=== PATIENT | male | born 1955 | race African-American/Black ===

== ENCOUNTER → 2017-05-29 | Outpatient (CLI) | payer OTHER ==
[~2017-05-29] MED LIST: ASPIR 8181 MG PO; COREG3.125 MG PO; DUONEB 2.5-0.5 M3 ML INH; EFFIENT10 MG PO; HUMALOG100 UNIT/2 SUBQ; LASIX 40 MG TAB40 MG PO; LEVEMIR SUBQ; LIPITOR 20 MG T20 M1 PO; METFORMIN HCL500 MG PO; NITROGLYCERIN0.4 MG SUBLING; OMEPRAZOLE40 MG PO; ONGLYZA5 MG PO; POTASSIUM20 PO; SPIRONOLACTONE25 M1 PO; TRADJENTA5 MG PO
[2017-05-29 11:41] LABS: CALCIUM 9.6 mg/dL (8.5-10.1); CREATININE 1.4 mg/dL (0.6-1.3); POTASSIUM 3.9 mmol/L (3.5-5.1)
== END ==
LOC: M.LAB 10:53
PROVIDERS: Nurse Practitioner
DX: I50.32 Chronic diastolic (congestive) heart failure (principal)

== ENCOUNTER 2017-09-08 22:47 | Observation (INO) | payer OTHER ==
[~2017-09-08] VITALS: Ht 175.3 cm; Wt 99.8 kg
[~2017-09-08 22:47] MED LIST changes: -LEVEMIR SUBQ; -OMEPRAZOLE40 MG PO; -SPIRONOLACTONE25 M1 PO; -TRADJENTA5 MG PO
[2017-09-08 22:53] VITALS: BP 153/66
[2017-09-08] MEDS ORDERED: TRADJENTA5 MG PO (23:04)
[2017-09-08] MEDS ORDERED: SPIRONOLACTONE25 M1 PO (23:04)
[2017-09-08] MEDS ORDERED: LEVEMIR SUBQ (23:05)
[2017-09-08 23:32] LABS: HEMATOCRIT 38.3 % (42.0-52.0); HEMOGLOBIN 12.3 gm/dL (14.0-18.0); MCH 26.8 pg (26.0-34.0); MCHC 32.2 g/dL (28.0-37.0); MCV 83.3 fL (80.0-100.0); MPV 10.2 fl. (7.2-11.1); NUCLEATED RBCS 0 /100WBC; PLATELET COUNT* 185 thou/uL (150-400); RDW-CV 17.4 % (10.5-14.5); WBC 15.3 thou/uL (4.0-11.0)
[2017-09-08 23:37] LABS: ANION GAP 7 mmol/L (7-16); BUN 22 mg/dL (7-18); CHLORIDE 101 mmol/L (98-107); CO2 33 mmol/L (21-32); CREATININE 1.6 mg/dL (0.6-1.3); GLUCOSE 160 mg/dL (70-99); POTASSIUM 3.8 mmol/L (3.5-5.1); SODIUM 141 mmol/L (136-145)
[2017-09-08 23:43] LABS: ALBUMIN 3.9 g/dL (3.4-5.0); ALKALINE PHOSPHATASE 108 U/L (46-116); LIPASE 104 U/L (73-393); SGOT 228 U/L (15-37); SGPT 203 U/L (30-65); TOTAL BILIRUBIN 1.5 mg/dL (<0.1-1.0); TOTAL PROTEIN 7.7 g/dL (6.4-8.2); TROPONIN-I LEVEL <0.06 ng/mL (<0.06)
[2017-09-09 01:12] LABS: URINE BLOOD NEGATIVE (Negative); URINE CLARITY CLEAR; URINE COLOR YELLOW; URINE GLUCOSE-RANDOM NEGATIVE (Negative); URINE KETONES TRACE (Negative); URINE LEUKOCYTES-REFLEX NEGATIVE (Negative); URINE NITRITE-REFLEX NEGATIVE (Negative); URINE PROTEIN 1+ (Negative); URINE SPECIFIC GRAVITY <= 1.005 (1.005-1.030)
[2017-09-09 01:15] LABS: ABSOLUTE BASOPHILS 0.2 thou/uL (0.0-0.2); ABSOLUTE LYMPHOCYTES 2.1 thou/uL (0.8-5.3); ABSOLUTE MONOCYTES 0.5 thou/uL (0.0-1.2); ABSOLUTE NEUTROPHILS 12.5 thou/uL (1.6-8.1)
[2017-09-09 01:16] LABS: ANISOCYTOSIS 1+; BURR CELLS Occasional; PLATELET ESTIMATE ADEQUATE
[2017-09-09 01:17] LABS: POIKILOCYTOSIS 1+
[2017-09-09 01:18] LABS: URINE BILIRUBIN 1+ (Negative)
[2017-09-09 01:23] LABS: ICTOTEST (BILI CONFIRMATORY) Negative (Negative)
[2017-09-09 03:15] VITALS: BP 143/83
[2017-09-09 03:20] VITALS: BP 140/76
[2017-09-09 08:00] VITALS: BP 112/75
[2017-09-09 08:36] LABS: ABSOLUTE BASOPHILS 0.1 thou/uL (0.0-0.2); ABSOLUTE EOSINOPHILS 0.1 thou/uL (0.0-0.7); ABSOLUTE LYMPHOCYTES 1.2 thou/uL (0.8-5.3); ABSOLUTE MONOCYTES 0.9 thou/uL (0.0-1.2); ABSOLUTE NEUTROPHILS 9.9 thou/uL (1.6-8.1); BASOPHILS 0.7 %; EOSINOPHILS 0.7 %; HEMATOCRIT 33.5 % (42.0-52.0); HEMOGLOBIN 10.9 gm/dL (14.0-18.0); LYMPHOCYTES 10.1 %; MCH 26.7 pg (26.0-34.0); MCHC 32.7 g/dL (28.0-37.0); MCV 81.7 fL (80.0-100.0); MONOCYTES 7.6 %; MPV 9.5 fl. (7.2-11.1); NUCLEATED RBCS 0 /100WBC; PLATELET COUNT* 168 thou/uL (150-400); POLYS 80.9 %; RDW-CV 16.9 % (10.5-14.5); WBC 12.2 thou/uL (4.0-11.0)
[2017-09-09 08:44] LABS: CALCIUM 8.7 mg/dL (8.5-10.1); CREATININE 1.4 mg/dL (0.6-1.3); POTASSIUM 3.5 mmol/L (3.5-5.1)
[2017-09-09 08:48] LABS: ALBUMIN 3.3 g/dL (3.4-5.0); MAGNESIUM 1.5 mg/dL (1.8-2.4); PHOSPHORUS* 3.5 mg/dL (2.5-4.9); TOTAL PROTEIN 6.6 g/dL (6.4-8.2)
--- NOTE | 2017-09-09 13:41 | EKG ---
[place] [address] ELECTROCARDIOGRAM REPORT Name: JACLYN GREEN Room: [address] IN [facility].#: [id number] Admission: 09/09/17 Attend Phys: Gomez Patel Discharge: Date of : 57 Report #: [id number] THIS REPORT FOR: //name// [facility] ED Test Date: 2017-09-08 Test Time: 23:09:50 Pat Name: JACLYN GREEN Department: Room: Gender: Rn Appeals: [place] : 1955 Requested By: Epifanio Trinh Order Number: [id number] MD: Nacho Burns Measurements Intervals [place] Rate: 90 P: 71 HI: 136 QRS: -20 QRSD: 139 T: 143 QT: 408 QTc: 500 Interpretive Statements Sinus rhythm Left bundle branch block Compared to ECG 09/26/2016 08:36:12 No significant changes Electronically Signed On 09-09-2017 13:40:53 CDT by Nacho Burns [email or web address] <ELECTRONICALLY SIGNED> By: Nacho Burns MD, [facility] 09/09/17 1340 2309 2309 Nacho Burns MD, FAC /EPI
[2017-09-09 17:49] VITALS: BP 119/77
[2017-09-09 20:40] VITALS: BP 110/69
[2017-09-10 04:34] LABS: MCH 27.7 pg (26.0-34.0); MCHC 33.4 g/dL (28.0-37.0); MCV 83.1 fL (80.0-100.0); RBC 3.98 mil/uL (4.50-6.00); RDW-CV 17.8 % (10.5-14.5); WBC 10.6 thou/uL (4.0-11.0)
[2017-09-10 05:11] LABS: ALBUMIN 3.2 g/dL (3.4-5.0); CALCIUM 8.6 mg/dL (8.5-10.1); CREATININE 1.5 mg/dL (0.6-1.3); MAGNESIUM 1.8 mg/dL (1.8-2.4); POTASSIUM 3.9 mmol/L (3.5-5.1); TOTAL BILIRUBIN 0.7 mg/dL (<0.1-1.0); TOTAL PROTEIN 6.6 g/dL (6.4-8.2)
[2017-09-10] MEDS ORDERED: OMEPRAZOLE40 MG PO (07:09)
[2017-09-10 08:00] VITALS: BP 130/76
[2017-09-10 09:44] VITALS: BP 110/69
== END 2017-09-10 11:30 | disposition home or self-care (01) ==
LOC: M.ERS 22:47 → M.TBA-ER 09-09 02:16 → M.ORTHSURG 09-09 02:16
PROVIDERS: Family Medicine; Internal Medicine; ADMIT Internal Medicine
DX: A41.9 Sepsis, unspecified organism (principal); K81.0 Acute cholecystitis; E11.22 Type 2 diabetes mellitus with diabetic chronic kidney disease; N18.2 Chronic kidney disease, stage 2 (mild); I50.32 Chronic diastolic (congestive) heart failure; I25.10 Atherosclerotic heart disease of native coronary artery without angina pectoris; Z72.89 Other problems related to lifestyle; Z95.5 Presence of coronary angioplasty implant and graft; Z98.890 Other specified postprocedural states; Z95.4 Presence of other heart-valve replacement; Z79.4 Long term (current) use of insulin

== ENCOUNTER 2019-03-28 09:30 | Observation (INO) | payer MEDICARE ==
[2019-03-28] VITALS (9 sets, daily range): BP systolic 137–144; BP diastolic 72–98
[~2019-03-28] VITALS: Ht 175.3 cm; Wt 98.4 kg
[~2019-03-28 09:30] MED LIST changes: +LEVEMIR SUBQ; +OMEPRAZOLE40 MG PO; +SPIRONOLACTONE25 M1 PO; +TRADJENTA5 MG PO
[2019-03-28 10:48] LABS: ABSOLUTE BASOPHILS 0.1 thou/uL (0.0-0.2); ABSOLUTE EOSINOPHILS 0.2 thou/uL (0.0-0.7); ABSOLUTE MONOCYTES 0.8 thou/uL (0.0-1.2); ABSOLUTE NEUTROPHILS 7.3 thou/uL (1.6-8.1); BASOPHILS 1.4 %; EOSINOPHILS 2.6 %; HEMATOCRIT 38.6 % (42.0-52.0); LYMPHOCYTES 10.8 %; MCH 26.2 pg (26.0-34.0); MCHC 33.7 g/dL (28.0-37.0); MCV 77.7 fL (80.0-100.0); MPV 9.5 fl. (7.2-11.1); NUCLEATED RBCS 0 /100WBC; PLATELET COUNT* 239 thou/uL (150-400); POLYS 77.2 %; RBC 4.97 mil/uL (4.50-6.00); RDW-CV 16.9 % (10.5-14.5); WBC 9.4 thou/uL (4.0-11.0)
[2019-03-28 10:57] LABS: APTT 27.6 Seconds (25.0-31.3); INR 1.1; PROTIME 11.6 Seconds (9.20-11.50)
[2019-03-28 11:02] LABS: CALCIUM 9.4 mg/dL (8.5-10.1); CREATININE 1.3 mg/dL (0.6-1.3); POTASSIUM 3.7 mmol/L (3.5-5.1)
[2019-03-28 11:06] LABS: ALBUMIN 3.8 g/dL (3.4-5.0); TOTAL BILIRUBIN 1.2 mg/dL (<0.1-1.0); TOTAL PROTEIN 7.4 g/dL (6.4-8.2)
--- NOTE | 2019-03-28 18:58 | NUR ---
PT ARRIVED FROM [facility] AROUND 1840. ABLE TO MAKE NEEDS KNOWN. PT RESTING IN BED, TRIED TO URINATE WITH NO SUCCESS. CALL LIGHT WITHIN REACH, GROIN SITE C/D/I AT THIS TIME. BROTHER AT BEDSIDE. IV FLUIDS RUNNING PER EMAR. WILL CONTINUE TO MONITOR.
[2019-03-28 22:08] LABS: HEMOGLOBIN 13.1 gm/dL (14.0-18.0); MCH 25.7 pg (26.0-34.0); MCHC 32.7 g/dL (28.0-37.0); MCV 78.5 fL (80.0-100.0); MPV 9.5 fl. (7.2-11.1); RBC 5.1 mil/uL (4.50-6.00); WBC 9.9 thou/uL (4.0-11.0)
[2019-03-29 03:52] VITALS: BP 136/84
[2019-03-29 05:45] LABS: HEMATOCRIT 35.8 % (42.0-52.0); HEMOGLOBIN 11.9 gm/dL (14.0-18.0); MCHC 33.3 g/dL (28.0-37.0); MCV 78.1 fL (80.0-100.0); MPV 9.7 fl. (7.2-11.1); RBC 4.59 mil/uL (4.50-6.00); RDW-CV 16.8 % (10.5-14.5)
[2019-03-29 05:50] LABS: ALBUMIN 3.3 g/dL (3.4-5.0); ALKALINE PHOSPHATASE 77 U/L (46-116); ANION GAP 12 mmol/L (7-16); BUN 15 mg/dL (7-18); CALCIUM 8.3 mg/dL (8.5-10.1); CHLORIDE 103 mmol/L (98-107); CHOLESTEROL 194 mg/dL (<200); CO2 24 mmol/L (21-32); CREATININE 1.2 mg/dL (0.6-1.3); GLUCOSE 149 mg/dL (70-99); HDL CHOLESTEROL 50 mg/dL (>40); LDL CHOLESTEROL 124 mg/dL (<100); POTASSIUM 4.2 mmol/L (3.5-5.1); SGOT 16 U/L (15-37); SGPT 18 U/L (30-65); SODIUM 139 mmol/L (136-145); TC:HDL 3.9 Ratio (Not establshd); TOTAL BILIRUBIN 1.2 mg/dL (<0.1-1.0); TRIGLYCERIDE 101 mg/dL (<150); TROPONIN-I LEVEL 0.31 ng/mL (<0.06); VLDL 20 mg/dL (<40)
[2019-03-29 05:57] LABS: SERUM ASSESSMENT Clear
--- NOTE | 2019-03-29 06:57 | NUR ---
APPROX 2120 PT CATH SIGHT WAS ACTIVE BLEEDING, CATHODE RAY TUBE SALVAGE PROCESSOR NOTIFIED. PROVIDER NOTIFED. PRESSURE WAS HELD FOR 20 MIN. ORDERS FOR BEDREST TILL 0600, PT DID VOID SEVERAL TIMES. NO SIGNS OF HEMATOMA OR BLEEDING SINCE PRESSURE WAS HELD.
[2019-03-29 08:00] VITALS: BP 123/76
[2019-03-29 09:02] VITALS: BP 136/84
[2019-03-29 11:21] VITALS: BP 136/84
[2019-03-29 11:56] VITALS: BP 107/67
[2019-03-29] MEDS ORDERED: PLAVIX 75 MG TA75 MG PO (13:21)
--- NOTE | 2019-03-29 13:27 | CARD ---
[address] [address] CARDIAC CATH REPORT Name: JACLYN GREEN Olive Room: [address] Tisha Valdez#: [id number] Admission: 03/28/19 Attend Phys: Uriel Caal MD, Discharge: Date of : 57 Report #: [id number] THIS REPORT FOR: //name// cc: Uriel Dooley MD, John M. MD ~ THIS REPORT FOR: //name// APPROVED REPORT Study performed: 03/28/2019 12:32:32 Patient Details Patient Status: ED Room #: The patient is a 63 year-old male Event Personnel Uriel Caal Aoc Aadc Operations Staff Officer, Randee Pak Food ExpeditorShane Adam RTR Scrub, Jordyn Ruelas RTR Monitor Procedures Performed Art Access - R femoral artery* BEVERLY Place w/wo Plasty Single CIRC [id number] Left Heart Cath Coronaries, Bypass Grafts [id number] LHCCORCABG Indication Unstable angina , Positive stress test Risk Factors Obesity, Hypercholesterolemia, Diabetes Previous Procedures/Diagnoses Previous PCI, Previous Valve Surgery Admission/Lab Medications/Medications given during procedure Angiomax bolus and infusion Procedure Narrative The patient was brought urgently to the Cardiac Catheterization Laboratory and was prepped and draped in a sterile manner. The right femoral was infiltrated with 2% Lidocaine subcutaneous anesthesia. A [place] 6 FR sheath was inserted into the right femoral artery. Coronary angiography was performed using coronary diagnostic catheters. The right coronary system was accessed and visualized with a Diagnostic catheter. The left coronary [place] [address] CARDIAC CATH REPORT Name: JACLYN GREEN Room: [address] Tisha Valdez#: [id number] Admission: 03/28/19 Attend Phys: Uriel Caal MD, Discharge: Date of : 57 Report #: [id number] visualized with a Diagnostic catheter. The left ventricle was accessed and visualized with a Diagnostic catheter. Left ventricular/Aortic Valve gradient assessed via catheter pullback. Closure device was deployed with a 6 Fr Angioseal. The patient tolerated the procedure well and there were no complications associated with the procedure. There was no hematoma. Intraoperative Conscious Sedation Sedation start time: 13:26 Case end Time: 14:55 Fentanyl 25 mcg Versed 1 mg Contrast Type and Amount: Visipaque 360 ml [place] Artery Percent Stenosis I widely patent PARKINSON graft to the mid LAD Diagnostic Cath Left Main 20 percent proximal left main in-stent narrowing LAD 90% mid LAD stenosis with reciprocal flow reflecting a patent PARKINSON graft to the LAD Circumflex 80% ostial proximal 80% mid and 60% distal narrowing Right Coronary 100% proximal occlusion with lvvb-vq-huzcq collaterals filling the distal right coronary artery Left Ventriculography Left Ventriculography was not performed. Hemodynamics The aortic pressure is 129/70 mmHg with a mean of 97 mmHg. The left ventricular pressure is 134/5 mmHg with a mean of mmHg. The left ventricular end diastolic pressure is 19 mmHg. There was no gradient across the aortic valve upon pullback. PCI Technique Lesion Anticoagulation was achieved with Heparin. Patient was preloaded with PlavixOxygen Nasal cannula 2 l per min. Percutaneous coronary intervention was performed on the mid circumflex artery segment. The lesion stenosis prior to intervention was 80% with JAVI flow. A 6FR XBLAD 3.0 100CM Guide Catheter was used to engage the ostium. A IG: BMW 190cm Interventional Guidewire was used to cross the lesion. BALLOON DILATION A Balloon catheter Trek RX 2.5 X 12 was inserted and inflated up to 12.00atm for 10seconds. Additional Inflation: 14.00atm [place] [address] CARDIAC CATH REPORT Name: PETERJACLYN Room: [address] Courtney#: [id number] Admission: 03/28/19 Attend Phys: Uriel Caal MD, Discharge: Date of : 57 Report #: [id number] 9seconds. STENT DEPLOYMENT A drug-eluting stent Xience Hui 2.06D41cg was inserted and inflated up to 12.00atm for 6seconds. Additional Inflation: 14.00atm for 8seconds. Additional Inflation: 16.00atm for 9seconds. Final angiography reveals 10 % stenosis with JAVI 3 flow. PCI Technique Lesion 2 Percutaneous Coronary Intervention was performed on the proximal circumflex artery segment. The lesion stenosis prior to intervention was 80% with JAIV 3 flow. A 6FR XB LAD 3.0 100CM Guide Catheter was used to engage the ostium. A IG: BMW 190cm Interventional Guidewire was used to cross the lesion. Balloon Dilation A Balloon catheter Trek RX 2.5 X 12 was inserted and inflated up to 14.00atm for 4seconds. Stent Deployment A drug-eluting stent Xience Hui 2.5X12mm was inserted and inflated up to 12.00atm for 8seconds. Additional Inflation: 15.00atm for 6seconds. Additional Inflation: 15.00atm for 6seconds. Final angiography reveals 0 % stenosis with JAVI 3 flow. Conclusion #1 significant coronary artery disease characterized by the following: A 20% proximal left main in-stent narrowing B 90% mid LAD stenosis with reciprocal flow distally reflecting a patent PARKINSON graft C prominent though nondominant circumflex with 80% proximal 80% mid and 60% distal stenosis D dominant right coronary artery 100% occluded proximally with uvyc-gu-iamtl collaterals filling the distal right coronary artery #2 moderate elevation of left ventricular end-diastolic [place] [address] CARDIAC CATH REPORT Name: IHSAN GREENZACK Schaefer Room: [address] Tisha Valdez#: [id number] Admission: 03/28/19 Attend Phys: Uriel Caal MD, Discharge: Date of : 57 Report #: [id number] #3 single patent graft, PARKINSON graft to the mid LAD with no significant narrowing #4 successful percutaneous coronary intervention with deployment of drug-eluting stents at the sites of 80% proximal and mid circumflex stenosis with 0 and 10% residual narrowings and JAVI-3 flow to the distal vessel Recommendations Cardiac Risk Reduction Program Aggressive Medical Therapy Medications Administered Aspirin (any) Clopidogrel Diagnostic Cath Approved by: Uriel Caal MD Date/Time: 03/29/2019 13:20:00 <ELECTRONICALLY SIGNED> By: Uriel Caal MD, [facility] 03/29/19 1326 25 1326Uriel Caal MD, FACC /INF
--- NOTE | 2019-03-29 14:00 | NUR ---
ASSUMED PT CARE AT 0700, PT A&O X4, VSS, RA, UP AD MISAEL, WELT TREATER TRACING SINUS RHYTHM WITH BBB, FULL ASSESSMENT CHARTED. CATH SITE TO RIGHT GROIN, NON TENDER, DRESSING CLEAN, DRY, AND INTACT. PT DISCHARGED AT APPROX 1345 WITH SON, EDUCATED ON ALL DISCHARGE INSTRUCTIONS INCLUDING MEDICATIONS AND FOLLOW UP APPTS. WELT TREATER AND IV,REMOVED, HOURLY ROUNDING COMPLETED.
--- NOTE | 2019-03-29 16:34 | H ---
[address] [address] HISTORY AND PHYSICAL Name: JACLYN GREEN Room: [address] Tisha Valdez#: [id number] Admission: 03/28/19 Attend Phys: Uriel Caal MD, Discharge: 03/29/19 Date of : 57 Report #: [id number] THIS REPORT FOR: //name// cc: Uriel Dooley MD, John M. MD ~ THIS REPORT FOR: //name// CC: Uriel Caal Karrie Almaraz DATE OF SERVICE: 03/28/2019 HISTORY OF PRESENT ILLNESS: The patient is a very pleasant 63-year-old male with complex cardiac problems. He is status post remote coronary artery bypass grafting, aortic valve replacement. He has had marginally compensated heart failure. Recently, he has noted chest tightness with exertion and that precipitated his admission to the ER today. Episodes typically remit with cessation of activity, but they have become more frequent and more severe. He has underlying hypertension, hypercholesterolemia, diabetes, and weight excess. MEDICATIONS: Have included aspirin, atorvastatin, carvedilol, cetirizine, Jardiance, insulin, Tradjenta, metformin, nitroglycerin, omeprazole, Effient, and ramipril. PAST MEDICAL HISTORY: Remarkable for diabetes, prior aortic valve replacement with a tissue valve and hypercholesterolemia as well as weight excess. REVIEW OF SYSTEMS: Remarkable for the following: GENERAL: He notes mild persistent weight excess. ENDOCRINE: He has had longstanding diabetes, which is insulin requiring. MUSCULOSKELETAL: He notes mild arthritic complaints. Remainder is unremarkable. PHYSICAL EXAMINATION: GENERAL: Demonstrates a middle-aged male in no acute distress. VITAL SIGNS: Blood pressure 130/90, pulse rate is 78, respirations are 18 per minute. NECK: Jugular venous pressure is normal. Carotids are 1-2+. CHEST: Clear. CARDIAC: Reveals normal first and second heart sounds with a soft [place] [address] HISTORY AND PHYSICAL Name: JACLYN GREEN Olive Room: [address] Tisha Valdez#: [id number] Admission: 03/28/19 Attend Phys: Uriel Caal MD, Discharge: 03/29/19 Date of : 57 Report #: [id number] ABDOMEN: Mildly obese. EXTREMITIES: Without edema with intact femoral, pedal and radial pulses. LABORTORY DATA: Reviewed. Hemoglobin is normal. Creatinine 1.3 with a BUN of 13, glucose 176 mg percent. IMPRESSION: 1. Unstable angina. 2. Coronary artery disease, status post remote coronary artery bypass grafting. 3. Status post remote aortic valve replacement. 4. Type 2 diabetes. 5. Hypercholesterolemia. 6. Weight excess. RECOMMENDATIONS: Given the aforementioned clinical scenario, I would recommend proceeding with cardiac catheterization to document the magnitude of coronary and graft disease, possibilities for therapeutic modification. This has been discussed with the patient. Critical care time is 40 minutes from 11:00 to 11:40 on 03/28/2019. <ELECTRONICALLY SIGNED> By: Uriel Caal MD, FACC 03/29/19 1634 1143 1226Uriel Caal MD, FAC /nt
--- NOTE | 2019-03-29 16:35 | D ---
[address] [address] DISCHARGE SUMMARY Name: JACLYN GREEN Olive Room: [address] Tisha Valdez#: [id number] Admission: 03/28/19 Attend Phys: Uriel Caal MD, Discharge: 03/29/19 Date of : 57 Report #: [id number] THIS REPORT FOR: //name// cc: Uriel Dooley MD, John M. MD ~ THIS REPORT FOR: //name// CC: Uriel Caal DATE OF SERVICE: 03/28/2019 FINAL DISCHARGE DIAGNOSES: 1. Unstable angina. 2. Coronary artery disease. 3. Status post remote coronary artery bypass grafting. 4. Status post remote aortic valve replacement with a tissue bioprosthesis. 5. Status post percutaneous coronary intervention of the circumflex on 03/28/2019. 6. Type 2 diabetes. 7. Hyperlipidemia. 8. Exogenous obesity. PROCEDURES: 03/28/2019 -- left heart catheterization, selective coronary arteriography, PARKINSON graft study, and percutaneous coronary intervention to the circumflex with deployment of 2 drug-eluting stents. The patient is a very pleasant 63-year-old male who has noted chest tightness with exertion and had an abnormal stress test. He has underlying diabetes, hyperlipidemia and weight excess. In this context, with a pattern of angina, which has increased in frequency and an abnormal stress test, I proceeded with cardiac catheterization in 03/28/2019. That study revealed significant coronary artery disease with a patent left main stent with a 10-20% proximal narrowing and 80-90% mid LAD stenosis with a patent PARKINSON graft to the distal LAD and tandem 90% and 80% proximal and mid circumflex stenosis with a 50-60% distal circumflex narrowing. The right coronary artery was totally occluded proximally with left to right collaterals filling the distal right coronary artery. Noting his anatomy, I performed percutaneous coronary intervention on the circumflex, deploying a drug-eluting stents in the proximal and mid portion with 0 and 10% residual narrowing respectively and JAVI 3 flow of the distal vessel. Troponin marianela minimally to 0.31. Additional lab revealed a hemoglobin of 11.9, white blood cell count of 10,000 with 230,000 platelets. Sodium 139, potassium 4.2, BUN 15, creatinine 1.2 down from 1.3 preprocedurally and glucose 149 [place] [address] DISCHARGE SUMMARY Name: PETERJACLYN [address] [id number] Admission: 03/28/19 Attend Phys: Uriel Caal MD, Discharge: 03/29/19 Date of : 57 Report #: [id number]. He ambulated in the hallways without difficulty and there was good hemostasis at the femoral site of catheterization. DISCHARGE MEDICATIONS: He was discharged to home on 03/29/2019 on the following medications: Aspirin 81 mg daily, atorvastatin or Lipitor 40 mg at bedtime, carvedilol 3.125 mg b.i.d., Plavix 75 mg daily with 600 mg dose given treasure-procedurally, furosemide 40 mg daily, Levemir insulin in varying dose schedule at home, Tradjenta 5 mg daily, metformin 500 mg b.i.d. to be resumed on 03/31/2019, omeprazole 40 mg daily, spironolactone 25 mg daily, sublingual nitroglycerin 0.4 mg as needed. The patient is scheduled to return to see me on 04/26/2019 at 0900. Therefore, the patient is discharged to home in stable condition on the aforementioned medications with followup as described above. <ELECTRONICALLY SIGNED> By: Uriel Caal MD, FACC 03/29/19 1635 0921 1026Jolitzy Caal MD, FACC /nt
--- NOTE | 2019-03-30 13:45 | EKG ---
[place] [address] ELECTROCARDIOGRAM REPORT Name: PETERJACLYN Room: [address]#: [id number] Admission: 03/28/19 Attend Phys: Dillan Beltran Discharge: 03/29/19 Date of : 57 Date of Service: 03/29/19 0842 Report #: [id number] THIS REPORT FOR: cc: Uriel Dooley MD,Uriel Caal,Uriel Mars MD [facility] ~ THIS REPORT FOR: //name// [facility] Test Date: 2019-03-29 Test Time: 08:42:01 Pat Name: JACLYN GREEN Department: Room: [facility] Gender: M Clean Rice Broker: : 1955 Requested By: Uriel Caal Order Number: [id number] Reading MD: Uriel Caal Measurements Intervals [place] Rate: 95 P: 71 PA: 133 QRS: -17 QRSD: 135 T: 139 QT: 408 QTc: 513 Interpretive Statements Sinus rhythm Left bundle branch block Baseline wander in lead(s) I,III,aVL Compared to ECG 03/28/2019 15:31:17 No significant changes Electronically Signed On 03-29-2019 12:52:35 ELECTRIC CRANE OPERATOR by Uriel Caal [email or web address] <ELECTRONICALLY SIGNED> By: Uriel Caal MD, [facility] 03/29/19 1252 1 1 Uriel Caal MD, [facility] /EPI
--- NOTE | 2019-03-30 13:45 | EKG ---
[place] [address] ELECTROCARDIOGRAM REPORT Name: PETERJACLYN Schaefer Room: [address]#: [id number] Admission: 03/28/19 Attend Phys: Dillan Beltran Discharge: 03/29/19 Date of : 57 Date of Service: 03/28/19 1531 Report #: [id number] THIS REPORT FOR: cc: Uriel Dooley MD, John M. MD Holkins,Uriel Mars MD [facility] ~ THIS REPORT FOR: //name// [facility] Test Date: 2019-03-28 Test Time: 15:31:17 Pat Name: JACLYN GREEN Department: Room: [place] [address] Gender: M Hadoop Architect: : 1955 Requested By: Uriel Caal Order Number: [id number] Reading MD: Uriel Caal Measurements Intervals [place] Rate: 82 P: 68 ND: 145 QRS: -16 QRSD: 136 T: 134 QT: 431 QTc: 504 Interpretive Statements Sinus rhythm Left bundle branch block Compared to ECG 09/08/2017 23:09:50 No significant changes Electronically Signed On 03-28-2019 16:15:32 CHOCOLATE REFINING ROLLER by Uriel Caal [email or web address] <ELECTRONICALLY SIGNED> By: Uriel Caal MD, [facility] 03/28/19 1615 1531 1531 Uriel Caal MD, [facility] /EPI
--- NOTE | 2019-03-30 13:57 | EKG ---
[place] [address] ELECTROCARDIOGRAM REPORT Name: PETERJACLYN RIVERO Room: [address]#: [id number] Admission: 03/28/19 Attend Phys: Dillan Beltran Discharge: 03/29/19 Date of : 57 Date of Service: 03/28/19 0935 Report #: [id number] THIS REPORT FOR: cc: Uriel Dooley MD, John M. MD Holkins,Uriel Mars MD [facility] ~ THIS REPORT FOR: //name// [facility] ED Test Date: 2019-03-28 Test Time: 09:35:34 Pat Name: JACLYN GREEN Department: Room: Gender: M Marketing/Sales Person: Luis Miguel : 1955 Requested By: Karrie Almaraz Order Number: [id number] MD: Uriel Caal Measurements Intervals [place] Rate: 105 P: 77 NE: 134 QRS: -19 QRSD: 136 T: 140 QT: 393 QTc: 520 Interpretive Statements Sinus tachycardia Probable left atrial enlargement Left bundle branch block Compared to ECG 09/08/2017 23:09:50 Sinus rate has increased Electronically Signed On 03-28-2019 16:13:08 TALENT ACQUISITION PARTNER by Uriel Caal [email or web address] <ELECTRONICALLY SIGNED> By: Uriel Caal MD, [facility] 03/28/19 1613 0935 Uriel Caal MD, [facility] /EPI
== END 2019-03-29 13:45 | disposition home or self-care (01) ==
LOC: M.CL 09:30 → M.ERS 09:30 → M.TBA-CV 13:06 → M.2W 13:06
PROVIDERS: Personal Emergency Response Attendant; ADMIT Internal Medicine
DX: I25.110 Atherosclerotic heart disease of native coronary artery with unstable angina pectoris (principal); E11.9 Type 2 diabetes mellitus without complications; E78.5 Hyperlipidemia, unspecified; E66.9 Obesity, unspecified; Z95.1 Presence of aortocoronary bypass graft